=== PATIENT | female | born 1950 | race Caucasian/White ===

== ENCOUNTER 2024-06-02 10:23 | Emergency (ER) | payer MEDICARE, SELFPAY ==
[2024-06-02 10:39] VITALS: BP 147/77; PULSE 83; RESP 18; TEMP 36.9; O2SAT 100
--- NOTE | 2024-06-02 10:50 | ED.URI ---
HPI - URI/Sore Throat General Chief Complaint: Upper Respiratory Infection Stated Complaint: Sinus Infection Source: patient and RN notes reviewed Mode of arrival: ambulatory Limitations: no limitations History of Present Illness HPI Narrative: 74 y/o female presented for c/o nasal congestion, sinus pressure behind eyes and in cheek bones, headache and cough. Onset over one week. Patient is taking multiple supplements and states she does not like to take medication. Says she does not usually get sick, but has had pneumonia about 6 months ago. Currently denies sob, wheezing, n/v/d/f/c. MD elicited complaint: cough Related Data Home Medications ?Medication ?Instructions ?Recorded ?Confirmed ?Last Taken ?Type carica papaya (Papaya Enzyme 1 tablet PO TID 02/02/23 Unknown History tablet) cholecalciferol (vitamin D3) 10 10 mcg PO DAILY 02/02/23 Unknown History mcg (400 unit) capsule orphenadrine citrate 100 mg 100 mg PO Q12H 02/02/23 Unknown History tablet,extended release turmeric 100 mg-faviola 150 cap PO 02/02/23 Unknown History mg-olive 50 mg-oreg 150 mg-capryl capsule zinc acetate 25 mg (zinc) capsule 25 mg PO DAILY 02/02/23 Unknown History Allergies Allergy/AdvReac Type Severity Reaction Status Date / Time No Known Allergies Allergy Verified 06/02/24 10:51 Review of Systems Review of Systems: CONSTITUTIONAL: Denies malaise, chills, sweats, fever EYES: Denies visual changes, redness, or discharge ENT: Reports rhinorrhea, congestion, sinus pain, denies otalgia, sore throat CARDIOVASCULAR: Denies chest pain, palpitations, edema RESPIRATORY: Reports cough, post nasal drainage. Denies dyspnea GASTROINTESTINAL: Denies abdominal pain, nausea, vomiting, diarrhea MUSCULOSKELETAL: Denies myalgia NEUROLOGIC: Reports headache PMFSH Past Medical History Medical History Muscle spasm Chronic, thoracic Oral lichen planus GERD (gastroesophageal reflux disease) Surgical History Surgical History H/O section Family History Family History Grandparent Diabetes mellitus Hypertension Cerebrovascular accident Family history of lung cancer Father Family history of lung cancer Hypertension Heart disease Mother Diabetes mellitus Hypertension Depression Sibling Diabetes mellitus Family history of malignant neoplasm Social History Social History Smoking status: Never smoker Alcohol intake: current Drinks per week: 2 Substance use: never Substance use type: does not use Lack of Transportation: No Lack of Food: Never True Current Housing: I Have Housing Concerned About Future Housing: No Difficulty Paying Gas/Electric Bills: No Difficulty Paying for Meds: No Currently Unemployed: No Education: High School Diploma/GED Difficulty w/ Childcare or Family Care: No Occupation/Education: occupation Spiritual care concerns: No Agree to blood products: Yes Exam Narrative: GENERAL: mildly Ill-appearing, nontoxic EYES: PERRLA, conjunctivae clear ENT: Mucous membranes moist. Nasal congestion. TMs pearly soni with dull light reflex bilaterally; no tragal tenderness. Oropharynx erythematous without lesions or exudate, no drooling, no hoarseness, no trismus, uvula midline. NECK: Supple. CHEST: Clear to auscultation, breath sounds equal. HEART: Regular rate and rhythm. No murmur heard. NEURO: Alert and oriented x3. PSYCH: Normal mood and affect Course Course Emergency Course: Patient is aware of diagnosis, understands and agrees to treatment plan. Anticipatory guidance given. Patient agrees to follow-up as directed and is aware of reasons to seek care at the emergency department. Portions of this record may have been created with voice recognition software Level of Care: Express Care Visit Vital Signs Vital signs: Vital Signs Temperature 98.5 F 06/02/24 10:39 Pulse Rate 83 06/02/24 10:39 Respiratory Rate 18 06/02/24 10:39 Blood Pressure 147/77 H 06/02/24 10:39 Pulse Oximetry 100 06/02/24 10:39 Oxygen Delivery Room Air 06/02/24 10:39 Temperature 98.5 F 06/02/24 10:39 Pulse Rate 83 06/02/24 10:39 Respiratory Rate 18 06/02/24 10:39 Blood Pressure 147/77 H 06/02/24 10:39 Pulse Oximetry 100 06/02/24 10:39 Oxygen Delivery Room Air 06/02/24 10:39 reviewed MDM - URI/Sore Throat MDM Narrative Medical decision making narrative: Discussed physical exam findings c/w sinusitis at length. Pt appears reluctant to take abx or otc meds, however she is taking many supplements. Pt does not have pcp. Advised supportive measures and signs/symptoms to go to the ER. Pt is appropriate for outpt treatment and f/u. Differential Diagnosis Differential diagnosis: Likely upper respiratory infection, sinusitis and viral infection Discharge Plan Discharge Clinical Impression: Sinusitis Patient Disposition: Home, Self-Care Condition: Stable Instructions: Antibiotic Form, Rhinosinusitis (ED) Additional Instructions: Take antibiotic as directed Recommendations: Flonase spray and Zyrtec (or Claritin/Renetta) for nasal congestion over the counter Cough syrup may cause drowsiness; avoid driving or take it at night time. Tylenol every 8 hours as needed for pain Rest, fluids, and increase humidity of the air at home. Supplements may interact with antibiotics or other medications. Recommend stopping supplements while taking antibiotics. Follow up with your primary care provider in 1 week. Go to the ER for worsening symptoms or concerns. Patient Language: Citizen Of [place] Prescriptions: New amoxicillin-pot clavulanate 875-125 mg tablet 1 tablet PO Q12H 7 Days Qty: 14 0RF No Action orphenadrine citrate 100 mg tablet extended release 100 mg PO Q12H Papaya Enzyme Tablet 1 tablet PO TID Rx Instructions: administer with meals zinc acetate 25 mg (zinc) capsule 25 mg PO DAILY zgxedbjy-dadv-regdn-oreg-capry 100 mg-150 mg- 50 mg-150 mg capsule PO cholecalciferol (vitamin D3) 10 mcg (400 unit) capsule 10 mcg PO DAILY Follow-up/Referrals: PHYSICIAN,COMMUNICATIONS STATION MANAGER [Primary Care Provider] - Time of Disposition: 11:13
== END 2024-06-02 11:15 | disposition home or self-care (01) ==
PROVIDERS: Emergency Provider Nurse Practitioner Family
DX: J32.9 Chronic sinusitis, unspecified (principal); K21.9 Gastro-esophageal reflux disease without esophagitis; L43.9 Lichen planus, unspecified
CPT/HCPCS: 99213; G0463